=== PATIENT | male | born 1965 | race Caucasian/White ===

== ENCOUNTER 2018-04-18 15:32 | Emergency (ER) | payer MEDICAID ==
[~2018-04-18] VITALS: Ht 162.6 cm; Wt 136.0 kg
[2018-04-18] MEDS ORDERED: DICL75TA5 MT (16:59)
[2018-04-18] MEDS ORDERED: HYDROCODONE/ACETAMINOPHEN 5/325MG TABLET PO ONE (19:00)
[2018-04-18 19:56] VITALS: BP 167/93
== END 2018-04-18 20:07 | disposition home or self-care (01) ==
LOC: ER 15:32
DX: M54.5 Low back pain (principal); M25.562 Pain in left knee; I10 Essential (primary) hypertension; F17.200 Nicotine dependence, unspecified, uncomplicated; Z98.890 Other specified postprocedural states
CPT/HCPCS: 72100; 73560; 99284

== ENCOUNTER 2022-02-19 13:41 | Inpatient (IN) | payer MEDICAID, OTHER ==
[~2022-02-19] VITALS: Ht 165.1 cm; Wt 159.2 kg
[~2022-02-19 13:41] MED LIST: DICL75TA5 MT
[2022-02-19] MEDS ORDERED: MORPHINE SULFATE 4 MG/ML CPJ (NOT FOR IM USE) IV STA (15:13)
[2022-02-19] MEDS ORDERED: SODIUM CHLORIDE 0.9% 1,000 ML IV ONE (15:15)
[2022-02-19 16:03] LABS: CHLORIDE 113 mEq/L (98-107)
[2022-02-19 16:14] LABS: BASOPHILS % 0.4 % (0.0-2.0); HEMATOCRIT. 30.6 % (42.0-52.0); HEMOGLOBIN. 9.8 g/dL (14.0-18.0); LYMPHOCYTES % 13.4 % (20.0-50.0); MEAN CORPUSCULAR HEMOGLOBIN 29.7 pg (28.0-32.0); MEAN CORPUSCULAR VOLUME 92.4 fL (80.0-94.0); MEAN PLATELET VOLUME 8.4 fl (7.4-10.4); MONOCYTES % 13.6 % (2.0-8.0); NEUTROPHILS % 70.6 % (40.0-76.0); PLATELET 157 x1000/uL (130-400); RED BLOOD CELL COUNT 3.32 mill/uL (4.7-6.1); RED CELL DISTRIBUTION WIDTH 19.1 % (11.6-14.6)
[2022-02-19 16:32] LABS: INR 1.2; PROTHROMBIN TIME 13.1 sec (9.6-11.0)
[2022-02-19] MEDS ORDERED: IBUP-2028 MT (19:36)
[2022-02-19] MEDS ORDERED: TOPUD PO (19:36)
[2022-02-19] MEDS ORDERED: MORPHINE SULFATE 4 MG/ML CPJ (NOT FOR IM USE) IV NR (22:45)
[2022-02-19] MEDS ORDERED: IOHEXOL-300 100 ML BOTTLE ONE (23:22)
[2022-02-20] MEDS ORDERED: IBUPROFEN 600MG TABLET PO ONE (03:15)
[2022-02-20] MEDS: LISINOPRIL 10MG TABLET PO SCH (18:56)
[2022-02-20] MEDS ORDERED: KETOROLAC 30MG/ML VIAL IV ONE (19:00)
[2022-02-21] MEDS ORDERED: ACETAMINOPHEN 500MG TABLET PO NR (09:00)
[2022-02-21] MEDS: LISINOPRIL 10MG TABLET PO SCH (09:12)
[2022-02-21] MEDS ORDERED: IBUPROFEN 400MG TABLET PO ONE (17:30)
[2022-02-22] MEDS ORDERED: DOCUSATE SODIUM 100MG CAPSULE PO PRN (11:45)
[2022-02-22] MEDS ORDERED: ONDANSETRON HCL 4MG/2ML INJ IV PRN (11:45)
[2022-02-22] MEDS ORDERED: CLONIDINE 0.1MG TABLET PO PRN (11:45)
[2022-02-22] MEDS ORDERED: LORAZEPAM 0.5MG TABLET PO PRN (11:45)
[2022-02-22] MEDS ORDERED: IPRATROPIUM/ALBUTEROL 0.5-3(2.5)MG/3ML NEB HHN PRN (11:45)
[2022-02-22] MEDS ORDERED: ACETAMINOPHEN 325MG TABLET PO PRN ×2 (11:45)
[2022-02-22] MEDS ORDERED: NALOXONE HCL 0.4MG/ML VIAL IV PRN (12:15)
[2022-02-22] MEDS: FUROSEMIDE 40MG/4ML VIAL IVP SCH ×2 (15:17→17:49)
[2022-02-22 15:23] LABS: TOTAL IRON BINDING CAPACITY 168 ug/dL (250-450)
[2022-02-22 16:00] VITALS: BP 122/63
[2022-02-22 16:06] LABS: VITAMIN B12 SERUM 1629 pg/mL (211-911)
[2022-02-22 16:49] VITALS: BP 122/63
[2022-02-22 17:12] LABS: FERRITIN 71 ng/mL (22-322)
[2022-02-22 17:23] LABS: HEPATITIS B SURFACE ANTIGEN NEGATIVE
[2022-02-22] MEDS: LISINOPRIL 10MG TABLET PO SCH (17:49)
[2022-02-22 20:00] VITALS: BP 137/84
[2022-02-23] MEDS: HYDROCODONE/ACETAMINOPHEN 5/325MG TABLET PO PRN ×3 (00:27→12:00)
[2022-02-23] MEDS: ALBUMIN HUMAN 25GM/100ML (25%) IV SCH ×3 (00:29→09:30)
[2022-02-23] MEDS: PANTOPRAZOLE SODIUM 40 MG/VIAL IV SCH ×2 (00:30→09:31)
[2022-02-23 04:00] VITALS: BP 120/76
[2022-02-23 06:54] LABS: BASOPHILS % 0.2 % (0.0-2.0); EOSINOPHILS % 0.5 % (0.0-5.0); HEMATOCRIT. 31.4 % (42.0-52.0); HEMOGLOBIN. 10.2 g/dL (14.0-18.0); LYMPHOCYTES % 10.3 % (20.0-50.0); MEAN CORPUSCULAR HEMOGLOBIN 29.6 pg (28.0-32.0); MEAN CORPUSCULAR VOLUME 90.9 fL (80.0-94.0); MEAN PLATELET VOLUME 8.3 fl (7.4-10.4); PLATELET 180 x1000/uL (130-400); RED BLOOD CELL COUNT 3.45 mill/uL (4.7-6.1); RED CELL DISTRIBUTION WIDTH 18.2 % (11.6-14.6)
[2022-02-23 08:00] VITALS: BP 128/71
[2022-02-23] MEDS: FUROSEMIDE 40MG/4ML VIAL IVP SCH ×2 (09:31→17:43)
[2022-02-23] MEDS: LISINOPRIL 10MG TABLET PO SCH (09:31)
[2022-02-23] MEDS ORDERED: LIDOCAINE HCL 1% 10 MG/ML 10ML VIAL ONE (11:33)
[2022-02-23 12:00] VITALS: BP 137/78
[2022-02-23 16:00] VITALS: BP 138/71
[2022-02-23] MEDS: ASCORBIC ACID 500 MG TABLET PO SCH (17:43)
[2022-02-23] MEDS: FERROUS SULFATE 325MG TABLET PO SCH (19:00)
[2022-02-23 20:00] VITALS: BP 134/71
[2022-02-24] VITALS: BP 107/69
[2022-02-24] MEDS: HYDROCODONE/ACETAMINOPHEN 5/325MG TABLET PO PRN ×2 (03:27→08:48)
[2022-02-24 04:00] VITALS: BP 104/59
[2022-02-24 08:00] VITALS: BP 114/63
[2022-02-24 08:00] LABS: HEMATOCRIT. 32.1 % (42.0-52.0); HEMOGLOBIN. 10.4 g/dL (14.0-18.0); MEAN CORPUSCULAR HEMOGLOBIN 29.3 pg (28.0-32.0); MEAN CORPUSCULAR VOLUME 90.9 fL (80.0-94.0); MEAN PLATELET VOLUME 8.4 fl (7.4-10.4); PLATELET 193 x1000/uL (130-400); RED BLOOD CELL COUNT 3.53 mill/uL (4.7-6.1); RED CELL DISTRIBUTION WIDTH 17.8 % (11.6-14.6)
[2022-02-24 08:10] LABS: PHOSPHORUS 3.9 mg/dL (2.5-4.9)
[2022-02-24] MEDS: PANTOPRAZOLE SODIUM 40 MG/VIAL IV SCH (08:33)
[2022-02-24] MEDS: ASCORBIC ACID 500 MG TABLET PO SCH ×2 (08:33→17:31)
[2022-02-24] MEDS: FERROUS SULFATE 325MG TABLET PO SCH ×2 (08:33→17:31)
[2022-02-24] MEDS: FUROSEMIDE 40MG/4ML VIAL IVP SCH ×2 (08:33→17:30)
[2022-02-24 12:00] VITALS: BP 115/67
[2022-02-24] MEDS ORDERED: MORPHINE SULFATE 2 MG/ML CPJ (NOT FOR IM USE) IV PRN (14:00)
[2022-02-24] MEDS: MEROPENEM 1,000 MG in SODIUM CHLORIDE 0.9% 100 ML IV SCH ×2 (14:26→20:55)
[2022-02-24 16:00] VITALS: BP 104/53
[2022-02-24 16:05] LABS: PLATELET ESTIMATE NORMAL
[2022-02-24 19:12] LABS: CLARITY URINE CLEAR (CLEAR); COLOR URINE DARK YELLOW (YELLOW); KETONES URINE TRACE (NEGATIVE); LEUKOCYTE ESTERASE URINE TRACE (NEGATIVE); NITRITE URINE NEGATIVE (NEGATIVE); OCCULT BLOOD URINE NEGATIVE (NEGATIVE); PROTEIN URINE TRACE (NEGATIVE); SPECIFIC GRAVITY URINE 1.017 (1.005-1.030)
[2022-02-24] MEDS ORDERED: CARVEDILOL 3.125 MG TABLET PO SCH (21:00)
[2022-02-24 21:06] VITALS: BP 121/73
[2022-02-25 00:59] VITALS: BP 113/67
[2022-02-25] MEDS: HYDROCODONE/ACETAMINOPHEN 5/325MG TABLET PO PRN (02:13)
[2022-02-25 05:00] VITALS: BP 117/66
[2022-02-25] MEDS: MEROPENEM 1,000 MG in SODIUM CHLORIDE 0.9% 100 ML IV SCH (05:49)
[2022-02-25] MEDS ORDERED: EPINEPHRINE 0.1MG/ML (1:10,000) 10ML SYR ONE (07:35)
== END 2022-02-25 06:39 | DRG 720 ==
LOC: ER 13:41 → 6EST 02-22 08:27 → ENRESERV 02-22 15:06
PROVIDERS: ADMIT Internal Medicine; ATTEND Internal Medicine
PROC: 0W9G3ZZ Drainage of Peritoneal Cavity, Percutaneous Approach (ICD-10-PCS; principal; 2022-02-23)
PROC: 5A12012 Performance of Cardiac Output, Single, Manual (ICD-10-PCS; 2022-02-25)
PROC: 0BH17EZ Insertion of Endotracheal Airway into Trachea, Via Natural or Artificial Opening (ICD-10-PCS; 2022-02-25)
DX: A41.9 Sepsis, unspecified organism (principal); K65.2 Spontaneous bacterial peritonitis; K70.31 Alcoholic cirrhosis of liver with ascites; K81.0 Acute cholecystitis; E88.09 Other disorders of plasma-protein metabolism, not elsewhere classified; D63.8 Anemia in other chronic diseases classified elsewhere; K76.6 Portal hypertension; N13.4 Hydroureter; I10 Essential (primary) hypertension; I46.9 Cardiac arrest, cause unspecified; R73.9 Hyperglycemia, unspecified; E87.5 Hyperkalemia; Z20.822 Contact with and (suspected) exposure to COVID-19; E66.01 Morbid (severe) obesity due to excess calories; I25.10 Atherosclerotic heart disease of native coronary artery without angina pectoris; R16.1 Splenomegaly, not elsewhere classified; N43.3 Hydrocele, unspecified; D29.32 Benign neoplasm of left epididymis; K57.32 Diverticulitis of large intestine without perforation or abscess without bleeding; Z68.43 Body mass index [BMI] 50.0-59.9, adult
CPT/HCPCS: 31500; 36415; 49083; 74177; 76700; 76870; 80048; 80053; 80076; 81003; 82040; 82248; 82607; 82728; 82746; 83036; 83540; 83550; 83605; 83615; 83735; 83880; 84100; 84132; 85025; 85044; 86705; 86709; 86803; 86850; 86900; 87077; 87186; 87340; 87426; 92950; 93306; 93976; 96361; 96374; 99285; C9113; J1940; J2185; J2270; J3490; J7030; J7050; P9047; Q9967